=== PATIENT | female | born 1970 | race Caucasian/White ===

== ENCOUNTER 2022-11-11 11:36 | Emergency (ER) | payer OTHER ==
[2022-11-11 12:39] LABS: ESTIMATED GFR 77 mL/min (>60)
[2022-11-11 13:03] LABS: ACETAMINOPHEN < 2 ug/mL (<2)
== END 2022-11-11 16:20 ==
LOC: FB.ED 11:36
DX: F32.A Depression, unspecified (principal); F41.9 Anxiety disorder, unspecified; F43.10 Post-traumatic stress disorder, unspecified; Z72.0 Tobacco use; Z20.822 Contact with and (suspected) exposure to COVID-19
CPT/HCPCS: 36415; 80053; 80143; 80179; 80307; 81001; 84439; 84443; 85025; 99285; U0002

== ENCOUNTER 2023-03-13 05:45 | Emergency (ER) | payer OTHER ==
[2023-03-13] MEDS: Acetaminophen 500 MG Tab PO ONE (06:19)
[2023-03-13] MEDS: Ibuprofen 800 MG Tab PO ONE (06:20)
== END 2023-03-13 07:13 | disposition home or self-care (01) ==
LOC: FB.ED 05:45
DX: S09.90XA Unspecified injury of head, initial encounter (principal); Z88.0 Allergy status to penicillin; W22.09XA Striking against other stationary object, initial encounter; Y92.002 Bathroom of unspecified non-institutional (private) residence as the place of occurrence of the external cause
CPT/HCPCS: 70450; 99283; A9270

== ENCOUNTER → 2023-04-24 | Day surgery (SDC) | payer OTHER ==
[~2023-04-24] MED LIST: Glycopyrrolate 0.2 MG/ML 5 ML MDV IV ONE; Lactated Ringers 1,000 ML IV SCH; Midazolam 1 MG/ML 2 ML SDV IV ONE; Propofol 200 MG/20 ML SDV IV ONE; Simethicone Drops 40 MG/0.6 ML 30 ML Bottle ONE; Sodium Chloride 0.9% 10 ML Syringe FLUSH PRN
== END | disposition home or self-care (01) ==
LOC: FB.SDS 06:06
PROVIDERS: ATTEND Surgery
DX: Z12.11 Encounter for screening for malignant neoplasm of colon (principal); K63.5 Polyp of colon; F41.9 Anxiety disorder, unspecified; J45.909 Unspecified asthma, uncomplicated; F32.A Depression, unspecified; K21.9 Gastro-esophageal reflux disease without esophagitis; F17.210 Nicotine dependence, cigarettes, uncomplicated; Z79.899 Other long term (current) drug therapy; Z88.0 Allergy status to penicillin; Z90.710 Acquired absence of both cervix and uterus
CPT/HCPCS: 00812; 45380; 45381; 88305; A9270; J2250; J2704; J3490; J7120

== ENCOUNTER 2023-10-11 19:28 | Emergency (ER) | payer OTHER | END 2023-10-11 21:10 | disposition home or self-care (01) | LOC: FB.ED 19:28 | DX: S63.501A Unspecified sprain of right wrist, initial encounter (principal); Z79.899 Other long term (current) drug therapy; Z88.0 Allergy status to penicillin; W19.XXXA Unspecified fall, initial encounter | CPT/HCPCS: 73110-RT; 99283 ==